=== PATIENT | female | born 1955 | race Caucasian/White ===

== ENCOUNTER → 2020-03-04 13:19 | Outpatient (CLI) | payer OTHER, SELFPAY ==
--- NOTE | ~2020-03-04 | MM_ITS ---
EXAMINATION: MM screening [facility] BI w cristel HISTORY: Screening mammogram TECHNIQUE: Craniocaudal and mediolateral oblique 3-D tomosynthesis images were obtained and synthetic 2-D images were generated. CAD analysis was submitted and interpreted. COMPARISON: 02/23/2019, 02/20/2018, 02/18/2017 BREAST PARENCHYMAL COMPOSITION: The breasts are heterogeneously dense, which may obscure small masses . FINDINGS: RIGHT BREAST: There is no evidence of suspicious mass, calcification, or architectural distortion to suggest malignancy. There has been no significant interval change. LEFT BREAST: There is possible architectural distortion in the posterior third of the outer breast be st appreciated 7 cm from the nipple on the craniocaudal view (image 26/60). IMPRESSION: 1. Possible left breast architectural distortion. 2. Additional mammographic views and possible breast ultrasound are recommended. BI-RADS Category 0: Incomplete: Needs additional imaging evaluation. Reviewed, dictated and finalized at location A. IMPRESSION: 1. Possible left breast architectural distortion. 2. Additional mammographic views and possible breast ultrasound are recommended . BI-RADS Category 0: Incomplete: Needs additional imaging evaluation.
--- NOTE | ~2020-03-04 | DEXA_ITS ---
Bone Density Report Name: Alison Dawn Age: 64 Sex: Female Ethnicity: White Date of : 1955 Indication: osteopenia; monitoring treatment; parental hip fracture; height loss; postmenopausal Referring Provider: Concepcion, Shiloh Study: Bone densitometry was performed. Exam Date: March 04, 2020 Accession number: [id number] Bone Density: Region BMD T-score Z-score Classification AP Spine (L1-L4) 0.922 -1.1 0.5 Osteopenia Femoral Neck (Left) 0.669 -1.6 -0.2 Osteopenia Total Hip (Left) 0.792 -1.2 -0.1 Osteopenia Femoral Neck (Right) 0.724 -1.1 0.3 Osteopenia Total Hip (Right) 0.717 -1.8 -0.7 Osteopenia Total Hip Mean 0.755 -1.5 -0.4 Osteopenia World Health Organization criteria for BMD impression classify patients as: Normal (T-score at or above -1.0), Osteopenia (T-score between -1.0 and -2.5), or Osteoporosis (T-score at or below -2.5). 10-year Fracture Risk: FRAX not reported because: Treated for osteoporosis Previous Exams: Region Exam Age BMD T-score BMD Change BMD Change Date g/cm2 vs Baseline vs Previous AP Spine(L1-L4) 03/04/2020 64 0.922 -1.1 -0.095* 0.091* 02/20/2018 62 0.831 -2.0 -0.186* -0.145* 02/03/2013 57 0.976 -0.6 -0.041* -0.041* 12/05/2007 52 1.017 -0.3 Total Hip(Left) 03/04/2020 64 0.792 -1.2 -0.123* 0.062* 02/20/2018 62 0.730 -1.7 -0.185* -0.139* 02/03/2013 57 0.869 -0.6 -0.047* -0.047* 12/05/2007 52 0.916 -0.2 Total Hip(Right) 03/04/2020 64 0.717 -1.8 -0.173* 0.037* 02/20/2018 62 0.681 -2.1 -0.210* -0.166* 02/03/2013 57 0.847 -0.8 -0.044* -0.044* 12/05/2007 52 0.890 -0.4 *Denotes significance at 95% confidence level, LSC for AP Spine = 0.022 g/cm2, LSC for Total Hip = 0.027 g/cm2 Clinical Information Provided by Patient: Parent has had a hip fracture Is being treated for osteoporosis Has used the following medications: Fosamax (i.e. alendronate), Vitamin D Patient maximum height was 69 Menopause Age: 57 Drinks caffeinated beverages Onset of menses at age 14 Number of children 2 Impression: The patient has low bone mass, based on the Right Total Hip T-score. The patient has risk factors, including: parental hip fracture. No significant bone loss was observed. Discussion: PATIENT UNDER TREATMENT WITH NO SIGNIFICANT B
== END ==
PROVIDERS: PCP Family Medicine; Visit Provider Nurse Practitioner
DX: Z12.31 Encounter for screening mammogram for malignant neoplasm of breast (principal); M85.88 Other specified disorders of bone density and structure, other site; R92.8 Other abnormal and inconclusive findings on diagnostic imaging of breast; M85.852 Other specified disorders of bone density and structure, left thigh; M85.851 Other specified disorders of bone density and structure, right thigh
CPT/HCPCS: 77063; 77067; 77080

== ENCOUNTER → 2020-03-18 09:03 | Outpatient (CLI) | payer OTHER, SELFPAY ==
--- NOTE | ~2020-03-18 | MMUS_ITS ---
EXAMINATION: MM diagnostic mammo unilat LT, US breast LT limited HISTORY: Follow-up possible architectural distortion of the left breast. TECHNIQUE: Additional 3-D tomosynthesis images of the left breast were performed and synthetic 2-D im ages were generated. CAD analysis was submitted and interpreted. High resolution left breast ultrasou nd was performed. COMPARISON: 03/04/2020 BREAST PARENCHYMAL COMPOSITION: The breasts are heterogenously dense, which may obscure small masses. FINDINGS: MAMMOGRAPHIC FINDINGS: There are no discrete masses, calcifications or architectural distortion in the left breast to sugges t malignancy. There are benign calcifications. ULTRASOUND: Left breast ultrasound: At 2:00, 4 cm from the nipple, there is an oval circumscribed hypoechoic mass with central echogenici ty measuring 1.4 x 0.8 x 1.4 cm. No internal vascularity at 3:00, 5 cm from the nipple there is heter ogeneous echotexture, although no discrete mass identified. IMPRESSION: 1. Probable benign left breast mass. 2. Recommend 6 month follow-up left breast ultrasound BI-RADS category 3, probably benign findings. Reviewed, dictated and finalized at location A. IMPRESSION: 1. Probable benign left breast mass. 2. Recommend 6 month follow-up left breast ultrasound BI-RADS category 3, probably benign findings.
== END ==
PROVIDERS: PCP Family Medicine; Visit Provider Obstetrics & Gynecology Gynecology
DX: N63.21 Unspecified lump in the left breast, upper outer quadrant (principal); R92.8 Other abnormal and inconclusive findings on diagnostic imaging of breast
CPT/HCPCS: 76642; 77065

== ENCOUNTER → 2020-09-12 09:06 | Outpatient (CLI) | payer OTHER, SELFPAY ==
--- NOTE | ~2020-09-12 | US_ITS ---
US breast LT limited DATE: 09/12/2020 09:35 INDICATION: Six-month follow-up of probable benign left breast mass at 2:00 TECHNIQUE: High-resolution ultrasound imaging of the left breast at 2:00 and 3:00 COMPARISON: 03/18/2020 limited left breast ultrasound and diagnostic left digital mammogram FINDINGS: There is a benign appearing stable circumscribed parallel hypoechoic heterogeneous mass wit hout internal vascularity or suspicious shadowing at left breast 2:00 position 4 cm from nipple, unch anged since 03/18/2020. There is some dense tissue without evidence of mass at 3:00 5 cm from the nipple. The findings are stable since 03/18/2020. IMPRESSION: BI-RADS Category 2: Benign Recommendation: Routine annual mammographic screening Reviewed, dictated and finalized at Location A. Reviewed, dictated and finalized at location A. LE MANAGER
== END ==
PROVIDERS: PCP Family Medicine; Visit Provider Obstetrics & Gynecology Gynecology
DX: R92.8 Other abnormal and inconclusive findings on diagnostic imaging of breast (principal)
CPT/HCPCS: 76642

== ENCOUNTER → 2021-03-06 12:17 | Outpatient (CLI) | payer OTHER, SELFPAY ==
--- NOTE | ~2021-03-06 | MM_ITS ---
EXAMINATION: MM screening [facility] BI w cristel HISTORY: Screening TECHNIQUE: Craniocaudal and mediolateral oblique 3-D tomosynthesis images were obtained and synthetic 2-D images were generated. CAD analysis was submitted and interpreted. COMPARISON: Comparison to multiple prior studies sequentially, with oldest reviewed study dated 02/18. BREAST PARENCHYMAL COMPOSITION: The breasts are heterogenously dense, which may obscure small masses FINDINGS: Stable benign-appearing mass in the outer aspect of the left breast. There is no evidence o f suspicious mass, calcification, or architectural distortion to suggest malignancy in either breast. There has been no suspicious interval change. IMPRESSION: 1. No mammographic evidence of malignancy. 2. Recommend routine screening mammography in one year. BI-RADS Category 2: Benign finding(s). Reviewed, dictated and finalized at location A.
== END ==
PROVIDERS: PCP Family Medicine; Visit Provider Nurse Practitioner
DX: Z12.31 Encounter for screening mammogram for malignant neoplasm of breast (principal)
CPT/HCPCS: 77063; 77067

== ENCOUNTER 2021-03-10 00:58 | Day surgery (SDC) | payer OTHER, SELFPAY ==
[2021-03-01 16:11] VITALS: BMI 23.1
[2021-03-10 09:49] VITALS: BP 120/63; PULSE 72; RESP 16; TEMP 36.1; O2SAT 100; BMI 22.9
[2021-03-10] MEDS: LACTATED RINGERS 1,000 ML 150 ML IV CONT (09:58)
--- NOTE | 2021-03-10 10:33 | PM.HPGS ---
History of Present Illness History of Present Illness Consent: Risks, benefits, and alternatives have been discussed and questions answered. Patient agrees to proceed with procedure. Chief complaint: neoplasm screening Narrative: Alison Dawn is a 65 year old female here for screening colonoscopy, last one 10-12 years ago. Review of Systems Constitutional: Constitutional: Denies headache(s) and Denies weakness Eyes: Eyes: Denies blurry vision ENT: Reports Normal hearing present, Denies headache(s) and Denies neck pain Cardiovascular: Cardiovascular: Denies chest pain and Denies dyspnea Respiratory: Respiratory: Denies dyspnea Gastrointestinal: Gastrointestinal: Reports no additional gastrointestinal complaints Genitourinary: Genitourinary: Denies dysuria Musculoskeletal: Musculoskeletal: Denies neck pain Integumentary/Breasts: Skin/Breast: Denies dry skin Neurologic: Reports Normal hearing present, Denies headache(s) and Denies weakness Psychiatric: Psychiatric: Denies anxiety Endocrine: Endocrine: Denies change in body appearance Hematologic/Lymphatic: Hematologic/Lymphatic: Denies easy bleeding Allergic/Immunologic: Allergic/Immunologic: Denies urticaria PMFSH Past Medical History Medical History (Updated 03/10/21 @ 10:34 by Pranay Mendez MD) Arthritis Colon cancer screening Osteoporosis Family History Family History Grandparent Family history of osteoporosis Family history of alcoholism Cerebrovascular accident Father Family history of kidney disease Family history of diabetes mellitus in first degree relative Family history of lung cancer, Onset Age: 69 No family history of osteoporosis Diabetes mellitus Mother Hypertension Social History Social History Smoking status: Never smoker Second hand tobacco smoke exposure: No Alcohol intake: never Living arrangements: with family Spiritual care concerns: No Meds Home Medications and Allergies Home Medications Medication Instructions Recorded Confirmed Type alendronate 70 mg tablet 70 mg PO WEEKLY 05/25/20 03/01/21 History ergocalciferol (vitamin D2) 1,250 1,250 mcg PO WEEKLY 05/25/20 03/01/21 History mcg (50,000 unit) capsule diclofenac sodium 50 mg 50 mg PO BID PRN #60 tablet 03/06/21 Rx tablet,delayed release Allergies Allergy/AdvReac Type Severity Reaction Status Date / Time No Known Allergies Allergy Unknown Verified 03/10/21 09:48 Vital Signs Vital Signs - 24 hr 03/10/21 09:49 Temperature 97 F L Pulse Rate 72 Respiratory Rate 16 Blood Pressure 120/63 Pulse Oximetry 100 Exam Const: General: comfortable and no acute distress HENMT: General nose exam: Normal nares present Eyes: General: appearance normal, both eyes and all related structures Neck: Neck: no JVD Resp: Auscultation: clear to auscultation bilaterally Cardio: Rate: regular rate Rhythm: regular rhythm GI: Inspection: non-distended GI Palp: Yes Soft to palpation Skin: General skin exam: normal color Neuro: General: gait normal Speech: normal speech Extrem: General: normal to inspection Psych: Mental Status: mental status grossly normal Assessment and Plan Assessment and plan (1) Colon cancer screening: Code(s): Z12.11 - Encounter for screening for malignant neoplasm of colon Status: Acute Assessment and Plan: colonoscopy
--- NOTE | 2021-03-10 10:38 | P.PNAN_ITS ---
Anes - Initial Pre Proc Eval Procedure: Operation Date: 03/10/21 10:30 Proposed Procedures p Screening Colonoscopy - Pranay Mendez MD Date/Time: 03/10/21 10:38 Surgeon: Pranay Mendez MD Pre Op Diagnosis: neoplasm screening Patient Data Age: 65 Gender: F Height: 1.75 m Weight: 70.6 kg Last Vital Signs Temp 97 F L 03/10/21 09:49 Pulse 72 03/10/21 09:49 Resp 16 03/10/21 09:49 BP 120/63 03/10/21 09:49 Pulse Ox 100 03/10/21 09:49 Allergies Allergy/AdvReac Type Severity Reaction Status Date / Time No Known Allergies Allergy Unknown Verified 03/10/21 09:48 Home Medications Medication Instructions Recorded Confirmed Type alendronate 70 mg tablet 70 mg PO WEEKLY 05/25/20 03/01/21 History ergocalciferol (vitamin D2) 1,250 1,250 mcg PO WEEKLY 05/25/20 03/01/21 History mcg (50,000 unit) capsule diclofenac sodium 50 mg 50 mg PO BID PRN #60 tablet 03/06/21 Rx tablet,delayed release Patient hx anesthesia problems: none Family hx anesthesia problems: none PMFSH Past Medical History Medical History (Updated 03/10/21 @ 10:34 by Pranay Mendez MD) Arthritis Colon cancer screening Osteoporosis Family History Family History Grandparent Family history of osteoporosis Family history of alcoholism Cerebrovascular accident Father Family history of kidney disease Family history of diabetes mellitus in first degree relative Family history of lung cancer, Onset Age: 69 No family history of osteoporosis Diabetes mellitus Mother Hypertension Social History Social History Smoking status: Never smoker Second hand tobacco smoke exposure: No Alcohol intake: never Living arrangements: with family Spiritual care concerns: No Anes - Eval Final PreProcedure Day of Procedure 03/10/21 10:38 Patient weight: normal Heart: regular rate and rhythm Lungs: clear to auscultation Airway: Mallampati scale class II Neurological: alert and oriented Last oral intake: >/= 8 hours ASA classification: II Emergent: no Anesthetic plan: proceed Anesthesia type and monitoring: general GIVS and standard monitoring Informed Consent: The patient's anesthetic plan and its attendant risks and benefits were discussed with the patient/family/POA. Questions were solicited a nd answers provided to the satisfaction of the patient/family/POA.
[2021-03-10 10:56] VITALS: BP 97/57; PULSE 68; RESP 18; O2SAT 100
[2021-03-10 11:06] VITALS: BP 100/62; PULSE 64; RESP 20; O2SAT 100
[2021-03-10 11:16] VITALS: BP 97/60; PULSE 67; RESP 22; O2SAT 100
== END 2021-03-10 11:28 | disposition home or self-care (01) ==
PROVIDERS: PCP Family Medicine; Visit Provider Internal Medicine Gastroenterology
PROC: 0DJD8ZZ Inspection of Lower Intestinal Tract, Via Natural or Artificial Opening Endoscopic (ICD-10-PCS; CPT 45378; principal; 2021-03-10 10:30)
DX: Z12.11 Encounter for screening for malignant neoplasm of colon (principal); K63.89 Other specified diseases of intestine; K64.8 Other hemorrhoids; M81.0 Age-related osteoporosis without current pathological fracture
CPT/HCPCS: 45378; J2704; J7120

== ENCOUNTER → 2022-04-26 13:25 | Outpatient (CLI) | payer OTHER, SELFPAY ==
--- NOTE | ~2022-04-26 | DEXA_ITS ---
Bone Density Report Name: THADDEUS BOLANOS Age: 66 Sex: Female Ethnicity: White Date of : 1955 Indication: osteopenia; monitoring treatment; parental hip fracture; height loss; Referring Provider: Concepcion, Shiloh Study: Bone densitometry was performed. Exam Date: April 26, 2022 Accession number: [id number] Bone Density: Region BMD T-score Z-score Classification AP Spine (L1-L4) 0.937 -1.0 0.8 Normal Femoral Neck (Left) 0.683 -1.5 0.1 Osteopenia Total Hip (Left) 0.786 -1.3 0.0 Osteopenia World Health Organization criteria for BMD impression classify patients as: Normal (T-score at or above -1.0), Osteopenia (T-score between -1.0 and -2.5), or Osteoporosis (T-score at or below -2.5). 10-year Fracture Risk: FRAX not reported because: Treated for osteoporosis Previous Exams: Region Exam Age BMD T-score BMD Change BMD Change Date g/cm2 vs Baseline vs Previous AP Spine(L1-L4) 04/26/2022 66 0.937 -1.0 -0.080* 0.016 03/04/2020 64 0.922 -1.1 -0.095* 0.091* 02/20/2018 62 0.831 -2.0 -0.186* -0.145* 02/03/2013 57 0.976 -0.6 -0.041* -0.041* 12/05/2007 52 1.017 -0.3 Total Hip(Left) 04/26/2022 66 0.786 -1.3 -0.130* -0.007 03/04/2020 64 0.792 -1.2 -0.123* 0.062* 02/20/2018 62 0.730 -1.7 -0.185* -0.139* 02/03/2013 57 0.869 -0.6 -0.047* -0.047* 12/05/2007 52 0.916 -0.2 *Denotes significance at 95% confidence level, LSC for AP Spine = 0.022 g/cm2, LSC for Total Hip = 0.027 g/cm2 Clinical Information Provided by Patient: Parent has had a hip fracture Is being treated for osteoporosis Has used the following medications: Fosamax (i.e. alendronate), Vitamin D, MTV Patient maximum height was 69.0 Menopause Age: 57 Drinks caffeinated beverages Onset of menses at age 14 Number of children 2 Impression: The patient has low bone mass, based on the Left Femoral Neck T-score. The patient has risk factors, including: parental hip fracture. No significant bone loss was observed. Discussion: PATIENT UNDER TREATMENT WITH NO SIGNIFICANT BMD LOSS SINCE LAST EXAM. In an untreated patient, BMD typically declines with age. A lack of decline or gain is usually a sign that treatment is efficacious and fracture risk is reduced. It is important to ask patients whether they are taking their medications and to encourage continued and appropriate compliance with their osteoporos
--- NOTE | ~2022-04-26 | MM_ITS ---
EXAMINATION: MM screening [facility] BI w cristel HISTORY: Screening TECHNIQUE: Craniocaudal and mediolateral oblique 3-D tomosynthesis images were obtained and synthetic 2-D images were generated. CAD analysis was submitted and interpreted. COMPARISON: No prior mammogram is available for comparison at this institution. BREAST PARENCHYMAL COMPOSITION: The breasts are extremely dense, which lowers the sensitivity of mamm ography FINDINGS: There is no evidence of suspicious mass, calcification, or architectural distortion to sugg est malignancy in either breast. There has been no suspicious interval change. IMPRESSION: 1. No mammographic evidence of malignancy. 2. Recommend routine screening mammography in one year. BI-RADS Category 1: Negative Reviewed, dictated and finalized at location A.
== END ==
PROVIDERS: PCP Family Medicine; Visit Provider Nurse Practitioner
DX: Z12.31 Encounter for screening mammogram for malignant neoplasm of breast (principal); M85.88 Other specified disorders of bone density and structure, other site; M85.852 Other specified disorders of bone density and structure, left thigh
CPT/HCPCS: 77063; 77067; 77080